=== PATIENT | male | born 1950 | race Caucasian/White ===

== ENCOUNTER 2021-12-13 17:15 | Emergency (ER) | payer OTHER ==
[~2021-12-13] VITALS: Ht 175.3 cm; Wt 92.0 kg
[~2021-12-13 17:15] MED LIST: AMLO10 PO; ASPI81EC PO; CIPR500 PO; GLIP5 PO; HYDACE5 PO; LOSA50 PO; METF500 PO; METO25 PO; ROSU10TA PO; RXHYD5325 PO
[2021-12-13] MEDS ORDERED: OXYC5 PO (19:39)
== END 2021-12-13 20:04 | disposition home or self-care (01) ==
LOC: ER 17:15
DX: S30.0XXA Contusion of lower back and pelvis, initial encounter (principal); I10 Essential (primary) hypertension; E11.9 Type 2 diabetes mellitus without complications; W11.XXXA Fall on and from ladder, initial encounter
CPT/HCPCS: 72100; 99283-25; A9270